=== PATIENT | male | born 1990 | race Caucasian/White ===

== ENCOUNTER 2019-10-20 02:19 | Emergency (ER) | payer OTHER, SELFPAY ==
[2019-10-20 02:20] VITALS: BP 160/88; PULSE 86; RESP 18; TEMP 37.1; O2SAT 96; BMI 38.9
--- NOTE | 2019-10-20 03:14 | ED.DEP ---
ED Disposition - Plan for ED Patient: Instructions: Back Sprain/Strain Prescriptions: cycloBENZAPRine HCl [Flexeril] 10 mg PO TID PRN #20 tablet PRN Reason: Muscle Spasm Naproxen [Naprosyn] 500 mg PO BID PRN #20 tablet Referrals: [facility] [GROUP OF PHYSICIANS] -
--- NOTE | 2019-10-20 03:19 | ED.DCSUM_ITS ---
- ER Visit Summary Date of Service: 10/20/19 Chief Complaint: Back pain History of Present Illness: The patient is a 29 M presenting with back pain. Patient states he injured his back at work 2 days ago. He states he was stacking boxes over his head. When the boxes started to fall, he twisted his back trying to catch them. He did not fall to the floor. He has had pain in his lower back since. He has tried ibuprofen at home. He denies bowel or bladder incontinence. Denies radiation to his legs. Denies numbness or weakness. Denies fever. He is able to ambulate with pain. Denies other complaints. Physical Examination: Vitals are stable. Patient is afebrile. Alert no acute distress. HEENT exam is unremarkable. Neck is supple. Lungs are clear and equal bilaterally. Heart is regular rate and rhythm. Abdomen is soft nontender nondistended. Back: Bilateral lumbar paraspinal muscle tenderness, no midline tenderness. Extremities are unremarkable. Skin is warm and dry. No rash No focal neurologic deficit. Normal strength and sensation Remainder of exam is unremarkable. Emergency Department Course and Treatment: He was given Toradol, Norflex IM. He is given prescription for Naprosyn and Flexeril. Advised to follow-up with [facility]. Advised return to ED for worsening complaints. Disposition: Discharge home Impression: Lumbar strain This note was generated with [employer] dictation software. It may contain incorrect words, spelling, and punctuation that were not noted in review of the chart prior to signing ED Disposition - Plan for ED Patient: Instructions: Back Sprain/Strain Prescriptions: cycloBENZAPRine HCl [Flexeril] 10 mg PO TID PRN #20 tab PRN Reason: Muscle Spasm Prescription Printed Naproxen [Naprosyn] 500 mg PO BID PRN #20 tab Prescription Printed Referrals: [facility] [GROUP OF PHYSICIANS] -
[2019-10-20] MEDS: Ketorolac 60 MG/2 ML Vial IM (03:20)
[2019-10-20] MEDS: Orphenadrine 60 MG/2 ML Ampul IM (03:22)
== END 2019-10-20 03:43 | disposition home or self-care (01) ==
PROVIDERS: Emergency Provider Emergency Medicine
DX: S39.012A Strain of muscle, fascia and tendon of lower back, initial encounter (principal); X50.1XXA Overexertion from prolonged static or awkward postures, initial encounter; Y93.89 Activity, other specified; Y92.89 Other specified places as the place of occurrence of the external cause; Y99.0 Civilian activity done for income or pay; J45.909 Unspecified asthma, uncomplicated
CPT/HCPCS: 96372; 99283

== ENCOUNTER → 2019-10-27 08:15 | Outpatient (CLI) | payer OTHER, SELFPAY ==
[2019-10-22 06:22] VITALS: BMI 38.9
--- NOTE | 2019-10-27 08:18 | RAD_ITS ---
STUDY: X-RAY - LUMBAR SPINE REASON FOR EXAM: Male, 29 years old. Twisting injury 3 days ago, low back pain TECHNIQUE: 5 view(s) of the lumbar spine were obtained. COMPARISON: None FINDINGS: Normal lumbar lordosis. There is no substantial scoliosis. There is a normal alignment of the vertebrae. There is mild endplate irregularity of the inferior aspect of L1 and superior endplate of L2 with mild narrowing of the L1-2 disc space. There is mild anterior wedging of L1. There is also mild narrowing of the L2-3 disc space. There is no demonstrated fracture. The soft tissue structures are unremarkable. RAD/L/S Spine Min 4 Views IMPRESSION: Mild endplate irregularity of the inferior aspect of L1 and superior endplate of L2 with mild narrowing of the L1-2 disc space. There is mild anterior wedging of L1, which may be congenital in nature or due to old injury. Mild narrowing of the L2-3 disc space. There is no evidence of acute fracture, spondylolysis, or spondylolisthesis. Electronically Signed: Khanh Jacobsen MD at 22:27 EST , Service support ,
== END ==
PROVIDERS: Referring Provider Physician Assistant; Visit Provider Physician Assistant
DX: S39.012A Strain of muscle, fascia and tendon of lower back, initial encounter (principal); X50.1XXA Overexertion from prolonged static or awkward postures, initial encounter
CPT/HCPCS: 72110